=== PATIENT | male | born 1970 | race Caucasian/White ===

== ENCOUNTER 2022-08-05 10:31 | Outpatient (CLI) | payer BC | END 2022-08-05 10:32 | disposition home or self-care (01) | LOC: CSHCP 10:31 | PROVIDERS: ATTEND Radiology Radiation Oncology | DX: C34.11 Malignant neoplasm of upper lobe, right bronchus or lung (principal); J44.9 Chronic obstructive pulmonary disease, unspecified | CPT/HCPCS: 94010; 94726; 94729; 94760 ==